=== PATIENT | male | born 1985 | race Caucasian/White ===

== ENCOUNTER 2018-01-25 00:27 | Emergency (ER) | payer OTHER ==
[~2018-01-25] VITALS: Ht 177.8 cm; Wt 63.5 kg
--- NOTE | 2018-01-25 01:02 | NUR ---
PT BIBSELF COMPLAINING OF CHEST PAIN X1 HOUR. PT DESCRIBES PAIN MEDIAL CHEST, NONRADIATING, THROBBING. PT STATES HE USED OPIATES AND MARIJUANA PRIOR TO SYMPTOMS. PT DENIES N/V/D, SOB, ABDOMINAL PAIN, HEADACHE. PT AAOX4. RESPIRATIONS EVEN AND UNLABORED. SKIN WARM AND INTACT. NO ACUTE DISTRESS NOTED AT THIS TIME. 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
--- NOTE | 2018-01-25 02:13 | NUR ---
Patient discharged to home in stable condition. Written and verbal after care instructions given. Patient verbalizes understanding of instruction. Pt Addendum: 01/25/18 at 0214 by SOULEYMANE Pt ambulatory with a steady gait
[2018-01-25 02:14] VITALS: BP 138/89
== END 2018-01-25 02:15 | disposition home or self-care (01) ==
LOC: ER 00:33
DX: F19.10 Other psychoactive substance abuse, uncomplicated (principal); F41.9 Anxiety disorder, unspecified; F12.10 Cannabis abuse, uncomplicated; G89.29 Other chronic pain; F17.200 Nicotine dependence, unspecified, uncomplicated; R00.0 Tachycardia, unspecified; Z96.611 Presence of right artificial shoulder joint; Z60.2 Problems related to living alone
CPT/HCPCS: 71045-TC; A4606; Z7610